=== PATIENT | female | born 1970 | race Caucasian/White ===

== ENCOUNTER 2024-10-05 15:03 | Emergency (ER) | payer OTHER, SELFPAY ==
[2024-10-05 15:08] VITALS: BP 155/91
--- NOTE | 2024-10-05 15:18 | ED.GENMED ---
ED Provider Triage
<Livia Espinoza PA-C - Last Filed: 10/05/24 15:25>
-
Patient seen by provider in Triage?: Seen in Triage
54-year-old female here for burning in her throat and frequent cough after a colonoscopy this morning. Patient had a colonoscopy at [facility]. During the procedure apparently she vomited a little bit. Patient did recover and tolerate oral fluids
prior to discharge
procedure was 1:45 pm
while on her way home she started couging, having SOB, pain with deep breath and throat burning/dyspepsia
she has not ahd any more vomiting
A medical screening examination has been initiated by a qualified medical provider. Based on the assessment performed at this time, it has been determined that an emergent medical condition may exist and the patient has been informed that further
medical evaluation and possible additional diagnostic testing may be needed.
HPI: This is a medical evaluation conducted in person to initiate diagnostic evaluation and provide initial therapeutics. Please see further documentation by the treating clinician.
GENERAL: Alert , in no apparent distress
ENT: No visible abnormalities
No stridor, tolerating secretions
LUNGS: No acute respiratory distress, spastic cough with deep breaths, lungs clear
NEUROLOGICAL: Alert and oriented
SKIN: Skin intact. No visible changes.
MUSCULOSKELETAL: Moving extremities normally
PSYCH: Normal and appropriate interaction.
54-year-old female with some dyspepsia after a colonoscopy, she may have aspirated during the procedure. Will check chest x-ray, she does have a slightly spastic cough, ordered Maalox. Her EKG subtly abnormal with nonspecific ST segment/T wave
inversion anteriorly, will order labs in the meantime
History of Present Illness
<Liiva Espinoza PA-C - Last Filed: 10/05/24 15:25>
General
Chief Complaint: Breathing Problem
Time Seen by Provider: 10/05/24 18:39
<Eleonora Montilla PA-C - Last Filed: 10/06/24 02:47>
General
Source: patient and spouse ( at bedside)
Exam Limitations: none
Nursing documentation reviewed up to this point in time: agreed with
History of Present Illness
History of Present Illness:
54-year-old female presenting to the emerged part with for evaluation of cough and throat discomfort after possible aspiration event during colonoscopy today. Patient had a colonoscopy performed at [facility] around 1:30 PM
today. She was put under moderate sedation for the procedure. When she woke up�she was told that she did vomit during the procedure. On her way home she developed a cough, shortness of breath, and chest discomfort with deep inspiration.
By my assessment�symptoms are largely improved however she does still have somewhat spastic cough with deep inspiration. Patient denies any lingering shortness of breath or chest pain at rest. She is tolerating oral secretions. She has not had
any further episodes of vomiting.
Past History
<Livia Espinoza PA-C - Last Filed: 10/05/24 15:25>
Past History
ED Past Medical History: None
ED Past Surgical History: None
Social History
Tobacco: Non-smoker
Alcohol: None
Drug: None
Review of Systems
<Eleonora Montilla PA-C - Last Filed: 10/06/24 02:47>
Review of Systems
Allergies reviewed?: Yes
All Other Systems: ROS reviewed and negative except as documented in HPI and ROS
Phy Exam
<Eleonora Montilla PA-C - Last Filed: 10/06/24 02:47>
Physical Exam
Physical Exam:
Vitals: Mildly hypertensive, otherwise vital signs stable. Afebrile
General: Patient is well appearing, no acute distress. Nontoxic appearing
Skin: Warm and dry, no rashes or lesions
Head: Normocephalic, atraumatic
Eyes: Sclera nonicteric. EOMs intact. No nystagmus.
Throat: Mild pharyngeal erythema. No tonsillar edema or exudates. Tolerating oral secretions and protecting airway
Neck: Normal ROM, no cervical spine tenderness, no meningismus
Cardiac: Regular rate and rhythm, no murmurs.
Pulm: Normal respiratory effort, no wheezes, rales, rhonchi heard on exam. O2 saturation 95 on room air
Abdomen: No abdominal tenderness.
Extremities: No evidence of cyanosis or edema. Perfusing well
Neuro: AAOx3. Grossly intact.
Psychiatric: Normal affect.
Scores
<Eleonora Montilla PA-C - Last Filed: 10/06/24 02:47>
Heart Failure Risk
Heart Failure Risk Score: Not Applicable
Course
<Livia Espinoza PA-C - Last Filed: 10/05/24 15:25>
Orders/Labs/Results
Orders:
Orders
10/05/24 15:05
EKG [Electrocardiogram (*1)] Urgent
Reason for Study: Chest Pain
EKG- Treatment ONCE
10/05/24 15:17
Mag Hydrox/Al Hydrox/Simeth [Maalox] 30 ml PO NOW STA
CR Chest - 2 Views Urgent
Comment:
Reason For Exam: vomit during colonosocopy; eval for aspiration
10/05/24 15:42
Complete Blood Count/With Diff Urgent
Comprehensive Metabolic Panel Urgent
Troponin I Urgent
10/05/24 19:29
Amoxicillin 875 mg/Clav 125 mg [Augmentin 875 mg/125 mg] 1 tablet PO NOW STA
Abnormal Lab Results
10/05/24
15:42
Glucose 109 H mg/dl
(70-99)
10/05/24 15:42
10/05/24 15:42
Vital Signs
Initial and Last Documented VS:
Initial Vital Signs
Temp Pulse Resp BP Pulse Ox
98 F 71 16 155/91 100
10/05/24 15:08 10/05/24 15:08 10/05/24 15:08 10/05/24 15:08 10/05/24 15:08
Last Documented Vital Signs
Temp Pulse Resp BP Pulse Ox
98 F 102 18 145/98 98
10/05/24 15:08 10/05/24 19:20 10/05/24 19:20 10/05/24 19:20 10/05/24 19:20
<Eleonora Montilla PA-C - Last Filed: 10/06/24 02:47>
Orders/Labs/Results
Orders:
Orders
10/05/24 15:05
EKG [Electrocardiogram (*1)] Urgent
Reason for Study: Chest Pain
EKG- Treatment ONCE
10/05/24 15:17
Mag Hydrox/Al Hydrox/Simeth [Maalox] 30 ml PO NOW STA
CR Chest - 2 Views Urgent
Comment:
Reason For Exam: vomit during colonosocopy; eval for aspiration
10/05/24 15:42
Complete Blood Count/With Diff Urgent
Comprehensive Metabolic Panel Urgent
Troponin I Urgent
10/05/24 19:29
Amoxicillin 875 mg/Clav 125 mg [Augmentin 875 mg/125 mg] 1 tablet PO NOW STA
Abnormal Lab Results
10/05/24
15:42
Glucose 109 H mg/dl
(70-99)
10/05/24 15:42
10/05/24 15:42
Vital Signs
Initial and Last Documented VS:
Initial Vital Signs
Temp Pulse Resp BP Pulse Ox
98 F 71 16 155/91 100
10/05/24 15:08 10/05/24 15:08 10/05/24 15:08 10/05/24 15:08 10/05/24 15:08
Last Documented Vital Signs
Temp Pulse Resp BP Pulse Ox
98 F 102 18 145/98 98
10/05/24 15:08 10/05/24 19:20 10/05/24 19:20 10/05/24 19:20 10/05/24 19:20
<Eleonora Montilla PA-C - Last Filed: 10/06/24 02:47>
MDM/Problems Addressed
Differential Diagnosis Includes:
Not limited to: Aspiration pneumonia, GERD, etc.
MDM/Problems Addressed:
54-year-old female presenting with cough and throat discomfort after possible aspiration event. Had reported history of vomiting during colonoscopy today shortly thereafter developing cough. Patient received Maalox in triage by my assessment
states symptoms feel improved although she still does have cough with deep inspiration. No shortness of breath or chest pain. Vital stable�patient is afebrile. On exam�patient well-appearing, no apparent distress. Heart regular rate and rhythm.
Lungs are clear bilaterally with no wheezing, rales, or rhonchi. She has not hypoxic or tachypneic. Basic labs initiated without clinically significant abnormalities. EKG did show some nonspecific T wave changes in anterior leads although
troponin undetectable. Do not suspect ACS. Chest x-ray was obtained which does show mild opacity in left lung base, atelectasis versus aspiration. Given known possible aspiration event today�we will treat with antibiotics to cover for possible
aspiration pneumonia. Patient very agreeable to this plan. Ultimately�feel patient stable for discharge home with p.o. antibiotics and primary care follow-up given she is not hypoxic and tachypneic and otherwise well-appearing. Patient given
first dose of Augmentin in emergency department. Close return precautions discussed. She will follow with PCP. All questions answered.
Chronic conditions affecting care:
Hypertension
Acute Exacerbation and/or Progression of Chronic Illness:
Acutely hypertensive
<Eleonora Montilla PA-C - Last Filed: 10/06/24 02:47>
*Radiology
Radiology exam reviewed: radiology read reviewed (Mild opacity in left base-atelectasis versus aspiration)
*Pulse Oximetry
Patient hypoxic: no
*EKG
Interpreted by ED Provider?: Yes
EKG Intrepretation Date: 10/05/24
Interpretation: abnormal
Comparison EKG: no comparison EKG present
Heart Rate: 66
Rate: normal
Rhythm: sinus
[place]: normal axis
Interval: normal interval
QRS Pattern: normal QRS
Ischemia: non-specific ST changes (Mild T wave inversions in anterior leads)
*Faculty Research Assistant Interpretation
Rate: Faculty Research Assistant- N/A
*Critical Care Note
Total Time (30-74mins, 75-104mins- exclusive of procedures): Not Applicable
ED Attending Note
<Livia Espinoza PA-C - Last Filed: 10/05/24 15:25>
-
Portions of this chart may have been created with voice recognition software.� Occasional wrong word or��sound alike� substitutions may have occurred due to the inherent limitations of voice recognition software.
Discharge Plan
Departure
Patient Disposition: Home (Routine Discharge)
Date of Disposition: 10/05/24
Time of Disposition: 19:30
Patient with high blood pressure during this ER visit?: Yes
Condition: Good
Covid-19: Not Applicable
Discharge Problem:
Aspiration
Instructions: Aspiration pneumonia - Discharge instructions, BLOOD PRESSURE
Prescriptions:
New
amoxicillin-pot clavulanate 875-125 mg tablet
1 tab PO BID 5 Days Qty: 10 0RF
No Action
losartan 25 mg Tablet
25 mg PO DAILY
Referrals:
Rui Shea MD [Family Provider] - Follow up in 2-3 days
Activity Restrictions/Additional Instructions:
RETURN TO THE EMERGENCY DEPARTMENT WITH ANY HIGH FEVERS, CHEST PAIN, SHORTNESS OF BREATH/DIFFICULTY BREATHING, BLOOD IN COUGH OR VOMIT, WORSENING IN CURRENT SYMPTOMS, OR ANY OTHER CONCERNS
-As discussed�we have started you on a course of antibiotics to cover for possible developing aspiration pneumonia. You should complete this course of antibiotics and take twice a day for the next 5 days
-Stay well-hydrated.
-You can take Tylenol as needed to for throat discomfort
-Follow-up with your primary care in few day for further evaluation and to ensure that symptoms are improving
Monitor your symptoms closely and return to the emergency department any acute worsening/new symptoms or any other concerns
Interventions
Interventions:
*Risk Screen - Suicide Last Done: 10/05/24 15:08
*General Assessment Last Done: 10/05/24 18:25
*Neglect/Abuse Screening Last Done: 10/05/24 15:08
ED- Fall Risk Assessment Last Done: 10/05/24 18:25
*ED COVID-19 Vaccine History Last Done: 10/05/24 18:25
*Nursing Disposition Last Done: 10/05/24 20:13
ED- Cardiac Assessment Last Done: 10/05/24 18:32
ED- Pulmonary Assessment Last Done: 10/05/24 18:32
Discharge Date and Time
Discharge Date/Time: 10/05/24 20:15
Print Language: URDU
[2024-10-05] MEDS: MAALOX 30 ML PO (15:21)
[2024-10-05 15:53] LABS: % Basophils 0.6 % (0-2); % Eosinophils 1.3 % (0-6); % Immature Granulocytes 0.4 % (0-0.5); % Lymphocytes 25.3 % (20.5-51.1); % Monocytes 5.9 % (1.7-9.3); % Neutrophils 66.5 % (42.2-75.2); Absolute Eosinophils 0.1 10^3/uL (0-0.7); Absolute Lymphocytes 1.2 10^3/uL (1.2-3.4); Absolute Monocytes 0.3 10^3/uL (0.1-0.6); Absolute Neutrophils 3.2 10^3/uL (1.4-6.5); Hematocrit 39.6 % (37.0-47.0); Hemoglobin 13.5 g/dL (12.0-16.0); Mean Corp Hgb Conc. 34.1 g/dL (33.0-37.0); Mean Corpuscular Hgb 29.6 pg (27.0-31.0); Mean Corpuscular Volume 86.8 fL (81.0-99.0); Mean Platelet Volume 9.8 fL (7.4-10.4); Nucleated Red Blood Cells % 0 %; Platelet Count 275 10^3/uL (130-400); Red Blood Cell Count 4.56 10^6/uL (4.20-5.40); Red Cell Dist. Width 13.1 % (11.5-14.5); White Blood Cell Count 4.8 10^3/uL (4.8-10.8)
[2024-10-05 16:04] LABS: ALT (SGPT) 17 U/L (0-35); AST (SGOT) 18 U/L (14-36); Albumin 4.7 g/dl (3.5-5.0); Alkaline Phosphatase 77 U/L (38-126); Blood Urea Nitrogen 12 mg/dl (7-17); Calcium 9.8 mg/dl (8.4-10.2); Carbon Dioxide 26 mmol/L (22-30); Chloride 104 mmol/L (98-107); Glucose 109 mg/dl (70-99); Sodium 139 mmol/L (135-145); Total Bilirubin 0.8 mg/dl (0.2-1.3); Total Protein 7.1 g/dl (6.3-8.2); eGFR > 60.00
[2024-10-05 16:15] LABS: Troponin I < 0.012 ng/ml
--- NOTE | 2024-10-05 18:22 | EDRN ---
Pt states she had colonoscopy. Pt vomited when under sedation. On arousing from sedation pt had a cough and was told she had vomited under sedation. Pt states she was driving home from place and was getting SOB in the car. Pt states her chest also
hurt and pt prior to leaving was advised to come to ER if this happened. Pt at this time is still having some pain in her lungs only w/ a deep breath, 6/10.
[2024-10-05 18:24] VITALS: BMI 29.1
[2024-10-05 18:29] VITALS: BP 130/93
[2024-10-05 19:20] VITALS: BP 145/98
[2024-10-05] MEDS: AUGMENTIN 875 MG/125 MG 1 TABLET PO (20:06)
== END 2024-10-05 20:15 | disposition home or self-care (01) ==
LOC: EMR 15:03
PROVIDERS: Physician Assistant; EMERGENCY PHYSICIAN Student in an Organized Health Care Education/Training Program; FAMILY PHYSICIAN Internal Medicine
DX: R05.9 Cough, unspecified (principal); I10 Essential (primary) hypertension
CPT/HCPCS: 99283; 71046; 80053; 84484; 85025; 93005